=== PATIENT | female | born 1940 | race Caucasian/White ===

== ENCOUNTER 2017-12-10 01:43 | Emergency (ER) | payer BC, MEDICAID ==
[~2017-12-10] VITALS: Ht 149.9 cm; Wt 51.3 kg
[2017-12-10] MEDS ORDERED: TDAP [DIPH/PERTUSSIS/TET] 0.5 ML VIAL IM ONE (02:00)
[2017-12-10] MEDS ORDERED: GELATIN SPONGE,ABSORBABLE 1 SPONGE SPONGE TP ONE ×2 (02:00→02:06)
--- NOTE | 2017-12-10 02:04 | NUR ---
ER AT BEDSIDE
[2017-12-10 02:46] VITALS: BP 133/95
== END 2017-12-10 02:46 | disposition home or self-care (01) ==
LOC: ER 01:45
DX: S61.002A Unspecified open wound of left thumb without damage to nail, initial encounter (principal); F32.9 Major depressive disorder, single episode, unspecified; G30.9 Alzheimer's disease, unspecified; F02.80 Dementia in other diseases classified elsewhere, unspecified severity, without behavioral disturbance, psychotic disturbance, mood disturbance, and anxiety; W26.0XXA Contact with knife, initial encounter; Y93.89 Activity, other specified; Y92.89 Other specified places as the place of occurrence of the external cause; Y99.8 Other external cause status
CPT/HCPCS: 99282; A4606; Z7610

== ENCOUNTER 2018-11-15 16:47 | Emergency (ER) | payer BC, MEDICAID, MEDICARE ==
[~2018-11-15] VITALS: Ht 165.1 cm; Wt 65.8 kg
--- NOTE | 2018-11-15 17:15 | NUR ---
Pain to L eye, sharp, intermittant, non radiating, with redness and discharge since yesterday. patient is alert and oriented x 3, verbally responsive and able to make needs known. on room air, breathing evenly, and unlabored. kept comfortbale. will continue to monitor accordingly.
[2018-11-15] MEDS ORDERED: TETRACAINE HCL/PF 0.5% UD 2 ML BOTTLE ONE (17:17)
[2018-11-15] MEDS ORDERED: TETRAcaine 5 ML BOTTLE LEFTEYE ONE (17:30)
[2018-11-15 18:20] VITALS: BP 125/79
--- NOTE | 2018-11-15 18:22 | NUR ---
Patient discharged to home in stable condition. Written and verbal after care instructions given. Patient verbalizes understanding of instruction.
== END 2018-11-15 18:21 | disposition home or self-care (01) ==
LOC: ER 16:53
DX: H57.89 Other specified disorders of eye and adnexa (principal); G30.9 Alzheimer's disease, unspecified; F32.9 Major depressive disorder, single episode, unspecified; Z88.5 Allergy status to narcotic agent
CPT/HCPCS: 99283; A4606; Z7610